=== PATIENT | female | born 1950 | race Hispanic/Latino ===

== ENCOUNTER 2016-07-16 07:44 | Outpatient (CLI) | payer MEDICARE ==
[2016-07-16] MEDS ORDERED: XYLOCAINE TOPICAL 4% TP ONE (08:13)
[2016-07-16] MEDS ORDERED: XYLOCAINE TOPICAL 2% ONE (10:02)
[2016-07-16] MEDS ORDERED: XYLOCAINE TOPICAL 2% TP ONE (10:05)
== END 2016-07-16 07:45 | disposition home or self-care (01) ==
LOC: WOUND 07:44
PROVIDERS: ATTEND Nurse Practitioner
DX: S90.822A Blister (nonthermal), left foot, initial encounter (principal); S50.821A Blister (nonthermal) of right forearm, initial encounter; I10 Essential (primary) hypertension; F31.61 Bipolar disorder, current episode mixed, mild; L84 Corns and callosities; K21.9 Gastro-esophageal reflux disease without esophagitis; E03.9 Hypothyroidism, unspecified; F32.9 Major depressive disorder, single episode, unspecified; J44.9 Chronic obstructive pulmonary disease, unspecified; I25.10 Atherosclerotic heart disease of native coronary artery without angina pectoris; F17.210 Nicotine dependence, cigarettes, uncomplicated; F31.9 Bipolar disorder, unspecified; X58.XXXA Exposure to other specified factors, initial encounter; Y93.9 Activity, unspecified; Y92.9 Unspecified place or not applicable; Y99.9 Unspecified external cause status
CPT/HCPCS: 11042; G0463

== ENCOUNTER 2016-09-08 09:45 | Day surgery (SDC) | payer MEDICARE ==
[~2016-09-08 09:45] MED LIST: ANCEF/STERILE WATER 2 GM/20 ML 2 GM/20 ML SYRINGE IV NR; DILAUDID IV PRN; NACL 0.9% 1000 ML 1,000 ML IV SCH; PEPCID PO NR; SUBLIMAZE IV ONE; ZOFRAN IV PRN
--- NOTE | 2016-09-08 10:47 | Anesthesia Consultation ---
Anesthesia Consult and Med Hx Date of service: 09/08/16 - Airway Anesthetic Teeth Evaluation: Good ROM Head & Neck: Adequate Mental/Hyoid Distance: Adequate Mallampati Class: Class II Intubation Access Assessment: Probably Good - Pulmonary Exam CTA: Yes - Cardiac Exam Cardiac Exam: RRR - Pre-Operative Health Status ASA Pre-Surgery Classification: ASA3 Proposed Anesthetic Plan: General Nerve Block: IS - Pulmonary Hx Smoking: Yes (STOPPED X 6 WEEKS-1 PPD X 50 YRS) Hx Asthma: Yes COPD: Yes Hx Pneumonia: Yes (2 MONTHS AGO) Hx Sleep Apnea: No (LISA PRE SCREEN LOW RISK) - Cardiovascular System Hx Hypertension: No Hx Heart Attack/AMI: No Hx Heart Murmur: Yes (CAUSES NO PROBLEMS) - Central Nervous System Hx Seizures: Yes (LAST SEIZURE 3 YRS AGO-NO MEDS) Hx Back Pain: Yes Hx Psychiatric Problems: Yes (anxiety, depression, bipolar) - Endocrine Hx End Stage Renal Disease: No Hx Hypothyroidism: Yes (ON MEDS) - Hematic Hx Anemia: Yes - Other Systems Hx Alcohol Use: Yes Hx Substance Use: No Hx Cancer: No Hx Obesity: Yes (BMI > 30)
--- NOTE | 2016-09-08 10:47 | Anesthesia Day of Surgery ---
Anesthesia Day of Surgery - Day of Surgery Patient Examined: Yes Patient H&P Reviewed: Yes Patient is NPO: Yes
[2016-09-08] MEDS ORDERED: DIPRIVAN 10 MG/ML IV ONE (11:01)
[2016-09-08] MEDS ORDERED: XYLOCAINE MPF 2% ONE (11:02)
[2016-09-08] MEDS ORDERED: DILAUDID ONE (11:02)
[2016-09-08] MEDS ORDERED: NACL BACTERIOSTATIC INFILTRATI ONE (11:03)
[2016-09-08 11:28] LABS: Basophils % (Auto) 0.5 % (0.0-1.8); Eosinophils % (Auto) 3.6 % (0.0-4.3); Hematocrit 35.7 % (30.3-42.9); Hemoglobin 11.6 gm/dl (10.1-14.3); Mean Corpuscular HGB Conc 33 % (30-34); Mean Corpuscular Hemoglobin 29 pg (28-32); Mean Corpuscular Volume 90 fl (79-97); Platelet Count 220 K/mm3 (140-440); Red Blood Count 3.96 M/mm3 (3.65-5.03); White Blood Count 5.3 K/mm3 (4.5-11.0)
[2016-09-08 11:34] LABS: Red Cell Distribution Width 22.1 % (13.2-15.2)
[2016-09-08] MEDS ORDERED: MARCAINE-EPI 0.5%-1:200,000 INFILTRATI ONE ×2 (11:53→13:56)
[2016-09-08] MEDS ORDERED: DECADRON ONE ×2 (11:53→13:56)
[2016-09-08] MEDS: VERSED IV NR ×2 (11:59→12:09)
[2016-09-08] MEDS ORDERED: ZOFRAN ONE (13:56)
--- NOTE | 2016-09-08 15:16 | Short Stay Summary ---
Short Stay Documentation Date of service: 09/08/16 - History H&P: obtained from office - Allergies and Medications Current Medications: Allergies No Known Allergies Allergy (Verified 10/04/13 12:19) Home Medications Medication Instructions Recorded Confirmed Last Taken Type Famotidine [Pepcid] 20 mg PO BID 10/02/15 09/08/16 09/07/16 History SUMAtriptan SUCCINATE [Imitrex] 100 mg PO PRN PRN 10/02/15 09/08/16 09/06/16 History ALBUTEROL Inhaler [ProAir HFA 2 puff IH QID PRN #1 inhalation 02/21/16 09/08/16 Unknown Rx Inhaler] Levothyroxine [Synthroid] 75 mcg PO DAILY 05/04/16 09/08/16 09/07/16 History clonazePAM 1 tab PO PRN PRN 07/02/16 09/08/16 09/07/16 History Duloxetine HCl [Cymbalta] 90 mg PO DAILY 09/03/16 09/08/16 09/07/16 History Ferrous Gluconate [Iron 236 MG tab] 236 mg PO DAILY 09/03/16 09/08/16 09/07/16 History Folic Acid [Folvite] 1 mg PO QDAY 09/03/16 09/08/16 09/07/16 History [place] Carbonate 300 mg PO BID 09/03/16 09/08/16 09/07/16 History QUEtiapine [SEROquel] 400 mg PO QHS 09/03/16 09/08/16 09/07/16 History Active Medications Famotidine (Pepcid) 20 mg PO PREOP NR Stop: 09/08/16 23:00 Last Admin: 09/08/16 11:05 Dose: 20 mg Hydromorphone HCl (Dilaudid) 0.5 mg IV Q10MIN PRN PRN Reason: Pain , Severe (7-10) Stop: 09/08/16 16:00 Last Admin: 09/08/16 14:45 Dose: 0.5 mg Cefazolin Sodium (Ancef/Sterile Water 2 Gm/20 Ml) 2 gm in 20 mls @ 80 mls/hr IV PREOP NR PRN Reason: Protocol Stop: 09/08/16 23:59 Sodium Chloride (Nacl 0.9% 1000 Ml) 1,000 mls @ 75 mls/hr IV DIRECT JUAN CARLOS Last Admin: 09/08/16 11:20 Dose: 75 mls/hr Midazolam HCl (Versed) 2 mg IV PREOP NR Stop: 09/08/16 23:59 Last Admin: 09/08/16 12:09 Dose: 2 mg - Brief post op/procedure progress note Date of procedure: 09/08/16 Pre-op diagnosis: Rotator cuff tear, biceps tendinosis right shoulder Post-op diagnosis: same Procedure: exploration of right shoulder, biceps tenodesis, and rotator cuff repair Anesthesia: regional Surgeon: MASHA CONDE Estimated blood loss: none Pathology: none Specimen disposition: discarded - Disposition Disposition: DISCHARGED TO HOME OR SELFCARE Short Stay Discharge Plan Follow up with: ZARI WAGNER MD [Primary Care Provider] - 7 Days
[2016-09-08 15:49] VITALS: BP 106/69
[2016-09-08] MEDS ORDERED: NORCO 5/325 PO PRN (17:03)
[2016-09-08] MEDS ORDERED: NORCO 5/325 ONE (17:06)
--- NOTE | 2016-09-11 20:25 | Operative Report ---
PREOPERATIVE DIAGNOSES: Recurrent tear of the rotator cuff, biceps tendon tendinosis, impingement syndrome right shoulder. POSTOPERATIVE DIAGNOSES: Recurrent tear of the rotator cuff, biceps tendon tendinosis, impingement syndrome right shoulder. PROCEDURES: Exploration of right shoulder, right shoulder rotator cuff repair, subacromial decompression, biceps tendon tenodesis. SURGEON: Raul Scott MD. SEAM RUBBING MACHINE OPERATOR: Ariela Jones RN. ANESTHESIA: General with a local block. COMPLICATIONS: None. FINDINGS: This patient had a small tear of the supraspinatus tendon which was quite thinned out over the area of the attachment in the biceps groove. The biceps tendon was degenerative with partial tearing, multiple Rice bodies within the tendon sheath. DESCRIPTION OF PROCEDURE: Once the patient was in the surgical room, a time-out was carried out to identify the patient and procedure, prepping and draping of the patient was done is usual fashion. The procedure was carried out by making an incision over the previous surgical scar in the shoulder. Dissection was carried out within the subcutaneous tissues, a split between the anterior deltoid and medial deltoid was developed. This was at the anteroinferior body of the acromion. The exploration of the area demonstrated a small spur in the area which was removed using a saw. Once this was carried out, the evaluation of the rotator cuff and bursas was done. ____ shoulder was done exposing the cuff and the cuff was found to be pointing out over the area of the supraspinatus tendon with fascia and also on the area of the biceps tendon. The biceps tendon was found to be degenerative in more than 50% with multiple Rice bodies which were basically milked from the inferior sheath. The sheath was opened and again milking out of the area was done. Once this was carried out, the procedure was continued by fixation and repair of the rotator cuff. An anchor was inserted into the biceps groove below the level of the greater tuberosity. The tendon was cut, and the tendon was sutured with ____ using 2-0 Orthocord. Once this was done, the sutures of the Orthocord were fastened with the anchor. The anchor was inserted and locked in place. This allowed for pulling of the biceps tendon back to the bone bed. Once this was done, using the sutures from the anchor, repair of the rotator cuff was carried out by putting multiple sutures through the area. All the sutures were tied. Once this was done, evaluation of the area demonstrated no other abnormalities. The procedure was then terminated. The wound was irrigated, infiltrated with Marcaine with epinephrine. Closure of the wound was carried out with #2-0 Ethibond to repair the tendon and muscle, following this by Vicryl suture to repair subcutaneous tissues. The skin was closed with subcuticular closure and Dermabond. The patient tolerated the procedure well. There were no complications. JOB# [id number] CASA/SHONNA
== END 2016-09-08 17:17 | disposition home or self-care (01) ==
LOC: OR 09:45
DX: M75.101 Unspecified rotator cuff tear or rupture of right shoulder, not specified as traumatic (principal); M75.21 Bicipital tendinitis, right shoulder; M75.41 Impingement syndrome of right shoulder; M19.90 Unspecified osteoarthritis, unspecified site; G40.909 Epilepsy, unspecified, not intractable, without status epilepticus; F32.9 Major depressive disorder, single episode, unspecified; J45.909 Unspecified asthma, uncomplicated; F17.200 Nicotine dependence, unspecified, uncomplicated; Z87.01 Personal history of pneumonia (recurrent)
CPT/HCPCS: 23412; 23430; 36415; 85025; C1713; J0690; J1100; J1170; J2250; J2405; J2704; J7030

== ENCOUNTER 2017-03-18 11:33 | Emergency (ER) | payer MEDICARE ==
--- NOTE | 2017-03-18 11:57 | Emergency Department Report ---
ED Animal Bite HPI - General Chief Complaint: Animal Bite Stated Complaint: RT WRIST LAC Time Seen by Provider: 03/18/17 11:55 Source: patient, family, EMS Mode of arrival: Ambulatory Limitations: No Limitations - History of Present Illness Initial Comments: Patient here with her friend who is her roommate. She said her cat and another cat that lives in the house got into a fight and she try to break the fight up and the cat scratched and bit her right wrist pointing to her right forearm. She says she is having pain 10 out of 10 that is burning and throbbing. She said both cats live inside and they never go outdoors and they're both up-to- date on their vaccinations including rabies. Patient said her tetanus shot is not up-to-date. She said she washed the area off and put a dressing on it. Patient said it happened around noon today and she took the ambulance to come to the hospital. She denies any fever or chills. Denies any numbness or tingling to extremities. Denies any restriction of movement to the injured hand from fingers upward. No [id number] pain medication taken. Complaint: animal bite, animal-related injury -: This afternoon Right: Forearm (CAT scan and bite laceration and pain) Animal: cat Animal Control Notified: Yes Description: household pet, immunizations UTD, appeared well Mechanism: bite, scratch, contact with mucous membr Pain Description: burning, other (throbbing) Severity scale (0 -10): 10 Context: animals fighting Associated Symptoms: bleeding. denies: erythema, discharge from wound, fever, chills, rash, loss of consciousness, cough, headache, diaphoresis, shortness of breath Treatments Prior to Arrival: wound dressing(s) - Related Data Patient Tetanus UTD: No Home Medications Medication Instructions Recorded Confirmed Last Taken Famotidine [Pepcid] 20 mg PO BID 10/02/15 09/08/16 09/07/16 SUMAtriptan SUCCINATE [Imitrex] 100 mg PO PRN PRN 10/02/15 09/08/16 09/06/16 Levothyroxine [Synthroid] 75 mcg PO DAILY 05/04/16 09/08/16 09/07/16 clonazePAM 1 tab PO PRN PRN 07/02/16 09/08/16 09/07/16 Duloxetine HCl [Cymbalta] 90 mg PO DAILY 09/03/16 09/08/16 09/07/16 Ferrous Gluconate [Iron 236 MG tab] 236 mg PO DAILY 09/03/16 09/08/16 09/07/16 Folic Acid [Folvite] 1 mg PO QDAY 09/03/16 09/08/16 09/07/16 [place] Carbonate 300 mg PO BID 09/03/16 09/08/16 09/07/16 QUEtiapine [SEROquel] 400 mg PO QHS 09/03/16 09/08/16 09/07/16 Previous Rx's Medication Instructions Recorded Last Taken Type ALBUTEROL Inhaler [ProAir HFA 2 puff IH QID PRN #1 inhalation 02/21/16 Unknown Rx Inhaler] Amoxicillin/K Clav Tab [Augmentin 1 tab PO Q12HR 10 Days #20 tab 03/18/17 Unknown Rx 875 mg] traMADol [Ultram] 50 mg PO Q6HR PRN 5 Days #20 tablet 03/18/17 Unknown Rx Allergies Allergy/AdvReac Type Severity Reaction Status Date / Time No Known Allergies Allergy Verified 10/04/13 12:19 ED Review of Systems ROS: Stated complaint: RT WRIST LAC Other details as noted in HPI Comment: All other systems reviewed and negative Constitutional: no symptoms reported Respiratory: no symptoms reported Cardiovascular: denies: chest pain, palpitations, dyspnea on exertion, edema, syncope Gastrointestinal: denies: abdominal pain, nausea, vomiting, diarrhea, constipation Musculoskeletal: arthralgia. denies: back pain, joint swelling, myalgia Skin: other (laceration to right forearm.) Neurological: denies: headache, weakness, numbness, paresthesias, confusion, abnormal gait, vertigo ED Past Medical Hx - Past Medical History Previous Medical History?: Yes Hx Hypertension: No Hx Heart Attack/AMI: No Hx Congestive Heart Failure: Yes Hx Diabetes: No Hx GERD: Yes Hx Headaches / Migraines: Yes (MIGRAINES) Hx Seizures: Yes (LAST SEIZURE 3 YRS AGO-NO MEDS) Hx Psychiatric Treatment: Yes (bipolar disorder) Hx Asthma: Yes Hx COPD: Yes Hx HIV: No Additional medical history: denies - Surgical History Past Surgical History?: Yes Additional Surgical History: right shoulder surgery (rotator cuff), back - Family History Family history: hypertension - Social History Smoking Status: Unknown if ever smoked Substance Use Type: None - Medications Home Medications: Home Medications Medication Instructions Recorded Confirmed Last Taken Type Famotidine [Pepcid] 20 mg PO BID 10/02/15 09/08/16 09/07/16 History SUMAtriptan SUCCINATE [Imitrex] 100 mg PO PRN PRN 10/02/15 09/08/16 09/06/16 History ALBUTEROL Inhaler [ProAir HFA 2 puff IH QID PRN #1 inhalation 02/21/16 09/08/16 Unknown Rx Inhaler] Levothyroxine [Synthroid] 75 mcg PO DAILY 05/04/16 09/08/16 09/07/16 History clonazePAM 1 tab PO PRN PRN 07/02/16 09/08/16 09/07/16 History Duloxetine HCl [Cymbalta] 90 mg PO DAILY 09/03/16 09/08/16 09/07/16 History Ferrous Gluconate [Iron 236 MG tab] 236 mg PO DAILY 09/03/16 09/08/16 09/07/16 History Folic Acid [Folvite] 1 mg PO QDAY 09/03/16 09/08/16 09/07/16 History [place] Carbonate 300 mg PO BID 09/03/16 09/08/16 09/07/16 History QUEtiapine [SEROquel] 400 mg PO QHS 09/03/16 09/08/16 09/07/16 History Amoxicillin/K Clav Tab [Augmentin 1 tab PO Q12HR 10 Days #20 tab 03/18/17 Unknown Rx 875 mg] traMADol [Ultram] 50 mg PO Q6HR PRN 5 Days #20 tablet 03/18/17 Unknown Rx ED Physical Exam - General Limitations: No Limitations General appearance: alert, in no apparent distress - Head Head exam: Present: atraumatic, normocephalic, normal inspection - Eye Eye exam: Present: normal appearance, PERRL, EOMI. Absent: periorbital swelling , periorbital tenderness Pupils: Present: normal accommodation - ENT ENT exam: Present: normal exam, normal orophraynx, mucous membranes moist ( ), TM's normal bilaterally, normal external ear exam - Neck Neck exam: Present: normal inspection, full ROM. Absent: tenderness, meningismus, lymphadenopathy, thyromegaly, other - Respiratory Respiratory exam: Present: normal lung sounds bilaterally. Absent: respiratory distress, wheezes, chest wall tenderness, accessory muscle use - Cardiovascular Cardiovascular Exam: Present: regular rate, normal rhythm, normal heart sounds. Absent: systolic murmur, diastolic murmur - GI/Abdominal GI/Abdominal exam: Present: soft, normal bowel sounds. Absent: distended, tenderness, guarding, rebound, rigid - Extremities Exam Extremities exam: Present: full ROM, tenderness (tender to palpate to right forearm around injured side.), normal capillary refill, other (no clubbing, cyanosis or edema. +2 pulses all extremities. No neurovascular compromise.). Absent: normal inspection, pedal edema, joint swelling, calf tenderness - Expanded Upper Extremity Exam Right General: Present: laceration. Absent: normal inspection (cat scratch and bite to right forearm), abrasion, nail injury (#), foreign body, amputation, avulsion Shoulder Exam: Present: normal inspection, full ROM. Absent: tenderness, swelling, abrasion, laceration, ecchymosis, deformity, crepidus, dislocation, erythema, tenderness over AC joint Upper Arm exam: Present: normal inspection, full ROM. Absent: tenderness, swelling, abrasion, laceration, ecchymosis, deformity, crepidus, dislocation, erythema Elbow exam: Present: normal inspection, full ROM. Absent: tenderness, swelling , abrasion, laceration, ecchymosis, deformity, crepidus, dislocation, erythema, effusion, pain w/ pronation/supination, tenderness over radial head Forearm Wrist exam: Present: full ROM, tenderness (right forearm distally), swelling (localized area right forearm distally), laceration (right forearm distally, flap-like laceration. Minimal bleeding noted. No signs of infection) . Absent: normal inspection, abrasion, ecchymosis, deformity, crepidus, dislocation, erythema, tenderness over anatomical snuff box, pain with axial thumb loading Hand Wrist exam: Present: normal inspection, full ROM. Absent: tenderness, swelling, abrasion, laceration, ecchymosis, deformity, crepidus, dislocation, erythema, amputation, nail avulsion, subungual hematoma Neuro motor exam: Present: wrist extension intact, thumb opposition intact, thumb IP flexion intact, thumb adduction intact, fingers 2-5 abduction intact Neurosensory exam: Present: 2-point discrimination, radial nerve intact, ulnar nerve intact, median nerve intact Vascular: Present: normal capillary refill, radial pulse, brachial pulse, ulnar pulse. Absent: vascular compromise, Pallo, pulse deficit radial art, pulse deficit ulnar art, pulse deficit brachial art - Back Exam Back exam: Present: normal inspection, full ROM, other (able to ambulate without any difficulties). Absent: tenderness, CVA tenderness (R), CVA tenderness (L), muscle spasm, paraspinal tenderness, vertebral tenderness, rash noted - Neurological Exam Neurological exam: Present: alert, oriented X3, normal gait, reflexes normal. Absent: motor sensory deficit - Expanded Neurological Exam Expanded Neurological exam: Absent: innattentive, memory loss-remote event, memory loss- recent event, ataxia, receptive aphasia, expressive aphasia, total aphasia, tremor, protecting the airway Patient oriented to: Present: person, place, time Speech: Present: fluid speech Cranial nerves: EOM's Intact: Normal, Gag Reflex: Normal, Tongue Deviation: Normal, Nystagmus: Normal, Facial Sensation: Normal Cerebellar function: Romberg: Normal Upper motor neuron: Pronator Drift: Normal, Sensory Extinction: Normal Sensory exam: Upper Extremity Light Touch: Normal, Upper Extremity Temperature: Normal, UE 2 Point Discrimination: Normal, Lower Extremity Light Touch: Normal, Lower Extremity Temperature: Normal, LE 2 Point Discrimination: Normal Motor strength exam: RUE: 5, LUE: 5, RLE: 5, LLE: 5 DTR: bicep (R): 2+, bicep (L): 2+, tricep (R): 2+, tricep (L): 2+, knee (R): 2+ , knee (L): 2+, ankle (R): 2+, ankle (L): 2+ Best Eye Response ([place]): (4) open spontaneously Best Motor Response ([place]): (6) obeys commands Best Verbal Response (Оль[place]а): (5) oriented Ольга Total: 15 - Psychiatric Psychiatric exam: Present: normal affect, normal mood - Skin Skin exam: Present: warm, dry, other (laceration to right forearm dorsal aspect distally.) - Expanded Skin Exam Expanded Type of lesion: Present: laceration (right forearm distal. Laceration stellate and irregular with small flap), bite/sting Description of rash: Present: size (4 cm x 3 cm), tenderness, swelling (L swelling around laceration site). Absent: erythematous, discharge, fluctuant, indurated ED Course Vital Signs 03/18/17 11:57 Temperature 98.7 F Pulse Rate 93 H Respiratory 20 Rate Blood Pressure 115/54 [Left] O2 Sat by Pulse 96 Oximetry Vital Signs 03/18/17 11:57 Temperature 98.7 F Pulse Rate 93 H Respiratory 20 Rate Blood Pressure 115/54 [Left] O2 Sat by Pulse 96 Oximetry - Reevaluation(s) Reevaluation #1: 03/18/17 18:52 Patient received blue streaks to update tetanus vaccine, she received Augmentin 875 mg Empirictreatment for cat scratch and cat bite. Topical lidocaine placed the site. Area irrigated with 500 mL of normal saline and iodine and irrigated with normal saline. Nonadhesive gauze dressing placed inside followed by cling wrap. And pain is controlled and she is stable - Procedure Description Procedures done: Procedure for open Wound: wound care done under sterile procedure. wound to rfa with 4x3 cm stellate, irreg, with minimal bleeding. Irrigated with 500 ml ns , followed by iodine . irrigated again afted iodine and exploered for FB. None seen. Topical lidocaine 1 mls prior to irrigation. sterile dry dsg placed site .Pt tolerated well. TD updated. Pt received 1st dose of Augmentin in ED - Laceration /Wound Repair Right Distal Dorsal Wrist Wound Location: upper extremity (right distal dorsal aspect of forearm close to the wrist) Wound Length (cm): 4 (3 cm) Wound's Depth, Shape: irregular (subcutaneous layer), flap, stellate Wound Explored: clean Irrigated w/ Saline (ccs): 500 Betadine Prep?: Yes Volume Anesthetic (ccs): 1 (viscous lidocaine topical) Wound Debrided: extensive Number of Sutures: 0 Number Deep Layer Sutures: 0 Sterile Dressing Applied?: Yes Progress: Patient status post cat bite and had scratched with open wound. Wound left open due to increase of risk of infection if closed. See procedure note for detail on wound care. Critical care attestation.: If time is entered above; I have spent that time in minutes in the direct care of this critically ill patient, excluding procedure time. ED Disposition Clinical Impression: Arthralgia of right forearm Cat bite Qualifiers: Encounter type: initial encounter Qualified Code(s): W55.01XA - Bitten by cat, initial encounter Cat scratch of right forearm Qualifiers: Encounter type: initial encounter Qualified Code(s): S50.811A - Abrasion of right forearm, initial encounter Laceration of right forearm Qualifiers: Encounter type: initial encounter Qualified Code(s): S51.811A - Laceration without foreign body of right forearm, initial encounter Disposition: [id number] OP ADMIT IP TO THIS HOSP Is pt being admited?: No Does the pt Need Aspirin: No Condition: Stable Instructions: Animal Bite (ED), Acute Wound Care (ED), Cat Scratch Disease (ED) Additional Instructions: Please keep affected area clean and dry Take antibiotic as prescribed Please do not drive or operate heavy machinery while taking Ultram as this medication causes drowsiness Please return to the emergency room tomorrow after 11 AM for recheck of cat scratch/bite site. If you notice, increased redness, swelling, fever, restriction in movement of your right hand and wrist please return to the emergency room ROSALINDA All a discharge instruction in acute wound care Please keep dressing on and do not remove until seen by provider tomorrow Prescriptions: Amoxicillin/K Clav Tab [Augmentin 875 mg] 1 tab PO Q12HR 10 Days #20 tab traMADol [Ultram] 50 mg PO Q6HR PRN 5 Days #20 tablet PRN Reason: Pain Referrals: PRIMARY CARE,MD [Primary Care Provider] - 3-5 Days Forms: Accompanied Note, Work/School Release Form(ED) ED Medical Decision Making - Radiology Data Radiology results: report reviewed X-ray of right forearm reveal no fracture or dislocation. Unremarkable x-ray of right forearm - Medical Decision Making ED course: Patient status post CAT scratch and cat bite at 12 noon today. She said cat that lives in her house were fighting and she tried to break the fight and up and cat bit and scratched her on her right forearm. Patient said the catheter house cat and they never go outside and the herbal vaccinated to include rabies vaccination. She said there is no need to call animal control because it's her cat and she does not want them to be involved. She said this was an accident. Patient with a falls, stellate open laceration to dorsal aspect of Rt distal forearm. X-ray of right forearm reveals unremarkable right forearm. Patient given Percocet 5/325 2 tablets in the emergency room to manage pain and voice relief of pain. Topical lidocaine placed to wound area. Area irrigated with 500 mL of normal saline and iodine followed by normal saline and nonadhesive gauze dressing placed inside followed by sterile bulky dry dressing. Patient instructed to return to the emergency room tomorrow after 11 AM to have wound reevaluate and check for signs of infection. Patient currently has no signs of infection and she is able to move her hands and has no radiating or streaking. Patient discharged home with prescription for Augmentin which she got her first dose in emergency room and tramadol for pain. Discharge home with friend in no acute distress. I collaborated with Dr Ramos on patient presentation and treatment plan in ED and OP and he agrees.
[2017-03-18 12:07] VITALS: BP 115/54
[2017-03-18] MEDS ORDERED: LIDOCAINE VISCOUS 2% PO ONE (12:33)
[2017-03-18] MEDS ORDERED: BOOSTRIX IM ONE (12:33)
[2017-03-18] MEDS ORDERED: PERCOCET 5/325 PO ONE (12:33)
[2017-03-18] MEDS ORDERED: NACL 0.9% IR ONE (12:39)
[2017-03-18] MEDS ORDERED: AUGMENTIN 875 MG PO ONE (12:49)
--- NOTE | 2017-03-18 13:55 | XRay Report ---
RIGHT FOREARM: History: cat bite, scratch AP and lateral views of the forearm demonstrate normal mineralization and contours for this patient's age. No destructive changes are noted and the adjacent soft tissues are normal. IMPRESSION: Unremarkable right forearm.
== END 2017-03-18 16:03 | disposition admitted as inpatient to this hospital (09) ==
LOC: ED 11:33
DX: S51.811A Laceration without foreign body of right forearm, initial encounter (principal); S50.811A Abrasion of right forearm, initial encounter; K21.9 Gastro-esophageal reflux disease without esophagitis; G43.909 Migraine, unspecified, not intractable, without status migrainosus; J45.909 Unspecified asthma, uncomplicated; J44.9 Chronic obstructive pulmonary disease, unspecified; W55.01XA Bitten by cat, initial encounter; Y93.89 Activity, other specified; Y92.89 Other specified places as the place of occurrence of the external cause; Y99.8 Other external cause status
CPT/HCPCS: 90471; 90715

== ENCOUNTER 2017-03-19 11:47 | Emergency (ER) | payer MEDICARE | END 2017-03-19 11:48 | disposition left against medical advice (07) | LOC: ED 11:47 | DX: Z53.21 Procedure and treatment not carried out due to patient leaving prior to being seen by health care provider (principal) ==